=== PATIENT | female | born 1955 | race African-American/Black ===

== ENCOUNTER 2017-04-25 12:42 | Emergency (ER) | payer OTHER ==
[~2017-04-25] VITALS: Ht 175.3 cm; Wt 102.1 kg
[2017-04-25 13:48] LABS: HEMATOCRIT 40.4 % (37.0-47.0); HEMOGLOBIN 13.7 gm/dL (12.0-15.0); MCH 29.8 pg (26.0-34.0); MCHC 33.9 g/dL (28.0-37.0); MCV 87.8 fL (80.0-100.0); PLATELET COUNT 248 thou/uL (150-400); RDW 14.2 % (10.5-14.5); WBC 15.5 thou/uL (4.0-11.0)
[2017-04-25 13:49] LABS: MANUAL DIFF YES
[2017-04-25 13:59] LABS: CALCIUM 9.4 mg/dL (8.5-10.1); POTASSIUM 3.2 mmol/L (3.5-5.1)
[2017-04-25 14:04] LABS: ALBUMIN 3.9 g/dL (3.4-5.0); DIRECT BILIRUBIN 0.1 mg/dL (<0.1-0.3); TOTAL BILIRUBIN 0.4 mg/dL (<0.1-1.0); TOTAL PROTEIN 7.7 g/dL (6.4-8.2)
[2017-04-25 14:48] LABS: ABSOLUTE NEUTROPHILS 13.8 thou/uL (1.4-8.2); TOTAL CELL COUNT 100
[2017-04-25] MEDS ORDERED: ZOCOR20 MG PO (15:16)
[2017-04-25] MEDS ORDERED: LISINOPRIL5 MG PO (15:18)
[2017-04-25] MEDS ORDERED: LEVOTHYROXIN0.025 MG PO (15:19)
[2017-04-25] MEDS ORDERED: AMLODIPINE BESYL5 M1 PO (15:19)
[2017-04-25 16:18] LABS: URINE BILIRUBIN NEGATIVE (Negative); URINE BLOOD NEGATIVE (Negative); URINE COLOR YELLOW; URINE GLUCOSE-RANDOM* NEGATIVE (Negative); URINE KETONES NEGATIVE (Negative); URINE NITRITE NEGATIVE (Negative); URINE PROTEIN (DIPSTICK) NEGATIVE (Negative); URINE UROBILINOGEN 0.2 E.U./dl (0.2-1.0)
[2017-04-25] MEDS ORDERED: KEFLEX500 MG PO (17:20)
[2017-04-25] MEDS ORDERED: ZOFRAN ODT8 MG PO (17:20)
[2017-04-25] MEDS ORDERED: NORCO 5-325 TA1 EACH PO (17:22)
[2017-04-25 17:44] VITALS: BP 149/70
== END 2017-04-25 17:45 | disposition home or self-care (01) ==
LOC: ER 12:42
PROVIDERS: Emergency Medicine
DX: K56.7 Ileus, unspecified (principal); L03.116 Cellulitis of left lower limb; E87.2 Acidosis; D72.829 Elevated white blood cell count, unspecified; T50.905A Adverse effect of unspecified drugs, medicaments and biological substances, initial encounter; Y92.89 Other specified places as the place of occurrence of the external cause

== ENCOUNTER 2020-11-04 14:04 | Emergency (ER) | payer OTHER ==
[~2020-11-04] VITALS: Ht 165.1 cm; Wt 99.3 kg
[~2020-11-04 14:04] MED LIST: AMLODIPINE BESYL5 M1 PO; KEFLEX500 MG PO; LEVOTHYROXIN0.025 MG PO; LISINOPRIL5 MG PO; NORCO 5-325 TA1 EACH PO; ZOCOR20 MG PO; ZOFRAN ODT8 MG PO
[2020-11-04 15:05] LABS: ABSOLUTE NEUTROPHILS 2.3 thou/uL (1.4-8.2); BASOPHILS 0.9 % (0.0-2.0); EOSINOPHILS 0.2 % (0.0-3.0); HEMATOCRIT 40.6 % (37.0-47.0); HEMOGLOBIN 13.1 gm/dL (12.0-15.0); LYMPHOCYTES 30.4 % (24.0-44.0); MCH 28.9 pg (26.0-34.0); MCHC 32.3 g/dL (28.0-37.0); MCV 89.6 fL (80.0-100.0); MONOCYTES 13.4 % (1.0-8.0); PLATELET COUNT 281 thou/uL (150-400); POLYS 55.1 % (36.0-66.0); RBC 4.54 mil/uL (4.20-5.00); RDW 14.1 % (10.5-14.5); WBC 4.2 thou/uL (4.0-11.0)
[2020-11-04 15:19] LABS: ANION GAP 7 mmol/L (7-16); BUN 13 mg/dL (7-18); CALCIUM 9.4 mg/dL (8.5-10.1); CHLORIDE 104 mmol/L (98-107); CO2 27 mmol/L (21-32); CREATININE 1.2 mg/dL (0.6-1.0); GLUCOSE 104 mg/dL (74-106); POTASSIUM 4.6 mmol/L (3.5-5.1); SODIUM 138 mmol/L (136-145)
[2020-11-04 15:29] LABS: ALBUMIN 3.3 g/dL (3.4-5.0); DIRECT BILIRUBIN < 0.1 mg/dL (<0.1-0.2); SGOT 40 U/L (15-37); TOTAL BILIRUBIN 0.3 mg/dL (0.2-1.0); TOTAL PROTEIN 7.6 g/dL (6.4-8.2); TROPONIN-I <0.06 ng/mL (<0.06)
[2020-11-04 15:59] LABS: SGPT 38 U/L (14-59)
[2020-11-04 18:16] VITALS: BP 156/76
--- NOTE | 2020-11-05 13:23 | EKG ---
[facility] [place] [address] ELECTROCARDIOGRAM REPORT Name: TONE RODRIGUEZ 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 : 1955 Requested By: Henny Breen Order Number: [id number] MD: Reinaldo Adams Measurements Intervals [place] Rate: 81 P: 50 [place]: 167 QRS: -6 QRSD: 93 T: 25 QT: 378 QTc: 439 Interpretive Statements Sinus rhythm Probable left atrial enlargement Abnormal R-wave progression, late transition Compared to ECG 07/18/1999 13:57:00 No significant changes Electronically Signed On 11-05-2020 13:23:24 [employer]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
== END 2020-11-04 18:17 | disposition home or self-care (01) ==
LOC: ER 14:04
PROVIDERS: Emergency Medicine
DX: R42 Dizziness and giddiness (principal); I10 Essential (primary) hypertension; E03.9 Hypothyroidism, unspecified; E78.5 Hyperlipidemia, unspecified; Z79.899 Other long term (current) drug therapy

== ENCOUNTER 2020-12-01 09:53 | Emergency (ER) | payer OTHER ==
[~2020-12-01] VITALS: Ht 165.1 cm; Wt 98.4 kg
--- NOTE | 2020-12-01 10:35 | EKG ---
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 : 1955 Requested By: Henny Breen Order Number: [id number] MD: Reinaldo Adams Measurements Intervals [place] Rate: 89 P: 40 MT: 166 QRS: -18 QRSD: 87 T: QT: 479 QTc: 583 Interpretive Statements Sinus rhythm Borderline left axis deviation Q wave V1-2 Compared to ECG 11/04/2020 14:09:05 Myocardial infarct finding now present Prolonged QT interval now present Electronically Signed On 12-01-2020 10:35:44 JAW SKINNER by Reinaldo Adams [email or web address] <ELECTRONICALLY SIGNED> By: Reinaldo Adams MD, [facility] 12/01/20 1035 [id number] 6 Reinaldo Adams MD, FACC /EPI
[2020-12-01 11:44] LABS: ABSOLUTE NEUTROPHILS 1.7 thou/uL (1.4-8.2); BASOPHILS 2.3 % (0.0-2.0); EOSINOPHILS 1.5 % (0.0-3.0); HEMOGLOBIN 13.1 gm/dL (12.0-15.0); LYMPHOCYTES 35.6 % (24.0-44.0); MCHC 31.9 g/dL (28.0-37.0); MCV 91.1 fL (80.0-100.0); MONOCYTES 11.2 % (1.0-8.0); PLATELET COUNT 266 thou/uL (150-400); POLYS 49.4 % (36.0-66.0); RDW 15.6 % (10.5-14.5); WBC 3.5 thou/uL (4.0-11.0)
[2020-12-01 11:47] LABS: ANION GAP 9 mmol/L (7-16); BUN 9 mg/dL (7-18); CALCIUM 9.2 mg/dL (8.5-10.1); CHLORIDE 105 mmol/L (98-107); CO2 25 mmol/L (21-32); CREATININE 0.9 mg/dL (0.6-1.0); GLUCOSE 103 mg/dL (74-106); POTASSIUM 3.8 mmol/L (3.5-5.1); SODIUM 139 mmol/L (136-145)
[2020-12-01 11:56] LABS: ALBUMIN 3.9 g/dL (3.4-5.0); DIRECT BILIRUBIN < 0.1 mg/dL (<0.1-0.2); SGOT 19 U/L (15-37); SGPT 25 U/L (14-59); TOTAL BILIRUBIN 0.3 mg/dL (0.2-1.0); TROPONIN-I <0.06 ng/mL (<0.06)
[2020-12-01] MEDS ORDERED: MOBIC15 MG PO (13:38)
[2020-12-01 13:58] VITALS: BP 152/87
== END 2020-12-01 13:59 | disposition home or self-care (01) ==
LOC: ER 09:53
PROVIDERS: Emergency Medicine
DX: R06.00 Dyspnea, unspecified (principal); M79.605 Pain in left leg; I10 Essential (primary) hypertension; E78.00 Pure hypercholesterolemia, unspecified; E03.9 Hypothyroidism, unspecified; Z79.899 Other long term (current) drug therapy